=== PATIENT | male | born 1940 | race Caucasian/White ===

== ENCOUNTER 2023-10-25 06:45 | Day surgery (SDC) | payer MEDICARE ==
[2023-10-18 15:39] LABS: BASOPHILS # (AUTO) 0.1 X10'3 (0-0.2); BASOPHILS % (AUTO) 1.3 % (0-1); EOSINOPHILS # (AUTO) 0.2 X10'3 (0-0.9); EOSINOPHILS % (AUTO) 2.7 % (0-6); LYMPHOCYTES # (AUTO) 0.9 X10'3 (1.1-4.8); LYMPHOCYTES % (AUTO) 15.5 % (21-51); MEAN CORPUSCULAR HEMOGLOBIN 30.6 PG (27.0-31.0); MEAN CORPUSCULAR HGB CONC 33.6 g/dL (33.0-36.5); MEAN PLATELET VOLUME 8.6 FL (7.4-10.4); MONOCYTES # (AUTO) 0.8 X10'3 (0-0.9); MONOCYTES % (AUTO) 13.4 % (2-12); NEUTROPHILS % (AUTO) 67.1 % (42-75); PRE OP HEMATOCRIT 35.7 % (42.0-52.0); PRE OP PLATELET COUNT 172 X10'3 (140-440); RED BLOOD COUNT 3.92 X10'6 (4.70-6.10); RED CELL DISTRIBUTION WIDTH 13.9 % (11.5-14.5)
[2023-10-18 16:03] LABS: ALBUMIN 3.2 G/DL (3.4-5.0); ALBUMIN/GLOBULIN RATIO 0.9 (1.1-1.5); ALKALINE PHOSPHATASE 79 IU/L (46-116); BLOOD UREA NITROGEN 43 MG/DL (7-18); BUN/CREATININE RATIO 25.4 (10.0-20.0); CALCIUM 8.9 MG/DL (8.5-10.1); CHLORIDE 111 MMOL/L (99-107); CREATININE 1.69 MG/DL (0.60-1.10); PRE OP ALT 28 U/L (30-65); PRE OP ANION GAP 8 (8-16); PRE OP AST 20 U/L (10-37); PRE OP BILIRUB, TOTAL 0.4 MG/DL (0.0-1.0); PRE OP GLUCOSE 116 MG/DL (70-104); PRE OP POTASSIUM 5.1 MMOL/L (3.4-5.1); PRE OP SODIUM 144 MMOL/L (135-145); TOTAL CARBON DIOXIDE 24.6 MMOL/L (24-32); TOTAL PROTEIN 6.7 G/DL (6.4-8.2); eGFR 39 ML/MIN
[2023-10-23] MEDS: DOCUMENT DATE & TIME OF BETA-BLOCKER PO ONE (21:00)
[~2023-10-25] VITALS: Ht 167.6 cm; Wt 72.6 kg
[2023-10-25] MEDS: cefazolin 2gm/D5W 100mL 100 ML IV ONE (05:30)
[~2023-10-25 06:45] MED LIST: ASCO500T20 PO; ASPI81TA52 PO; CHOL20004 PO; FLO0.4C PO; GLUCOSAMIN PO; METO-395 PO; MULT-1085 PO; OSC500T PO; SACU1TAB PO; clindamycin 600mg/D5W 50ml 50 ML IV ONE
[2023-10-25 07:10] VITALS: BP 126/69; PULSE 60; RESP 15; TEMP 97.2; O2SAT 100
[2023-10-25] MEDS ORDERED: ondansetron/PF 4mg/2ml inj IV PRN (08:00)
[2023-10-25] MEDS ORDERED: proCHLORperazine 10 MG/2 ml inj IV PRN (08:00)
[2023-10-25] MEDS ORDERED: ringers solution, lacted 1,000 ML IV SCH (08:00)
[2023-10-25] MEDS ORDERED: meperidine/PF 25mg/ml syringe IV PRN ×3 (08:00)
[2023-10-25] MEDS ORDERED: morphine 4 MG/ML inj SYRINge IV PRN (08:00)
[2023-10-25] MEDS ORDERED: morphine 2 MG/ML inj. syringe IV PRN (08:00)
[2023-10-25] MEDS: ringers solution, lacted 1,000 ML IV SCH (08:13)
[2023-10-25] MEDS: famotidine 20mg tablet PO ONE (08:13)
[2023-10-25] MEDS ORDERED: fentaNYL/PF 50MCG/1 ML 2ML syringe ONE (09:19)
[2023-10-25] MEDS ORDERED: midazolam 1 mg/ML 2ml injection ONE (09:31)
[2023-10-25] MEDS ORDERED: propofol inj 20 ML IV ONE (09:51)
[2023-10-25 09:57] VITALS: BP 108/52; PULSE 58; RESP 16; O2SAT 96
[2023-10-25 10:10] VITALS: BP 110/57; PULSE 51; RESP 12; O2SAT 96
[2023-10-25] MEDS: acetaminophen 1,000mg/100ml IV 100 ML IV ONE (10:13)
[2023-10-25 10:20] VITALS: BP 120/57; PULSE 55; RESP 13; O2SAT 96
[2023-10-25 10:30] VITALS: BP 112/61; PULSE 65; RESP 13; O2SAT 97
[2023-10-25 10:40] VITALS: BP 116/65; PULSE 59; RESP 12; O2SAT 97
[2023-10-25] MEDS: BUPIVAcaine/PF 2.5mg/ml (0.25%) 10ml vial ONE (16:07)
[2023-10-25] MEDS: LIDOcaine 2% (20mg/ml) 5ml vial ONE (16:08)
== END 2023-10-25 10:47 | disposition home or self-care (01) ==
LOC: PAS 06:45
PROVIDERS: ATTEND Orthopaedic Surgery Hand Surgery
DX: M20.011 Mallet finger of right finger(s) (principal); I10 Essential (primary) hypertension; I20.9 Angina pectoris, unspecified; Z79.82 Long term (current) use of aspirin; Z79.891 Long term (current) use of opiate analgesic; Z79.899 Other long term (current) drug therapy; Z98.890 Other specified postprocedural states
CPT/HCPCS: 26433; 36415; 80053; 82948; 85025; J0131; J0690; J2250; J2704; J3010; J3490; J7030; J7120; Z7506; Z7512; A4215; A4618; A6446; A6449; A7000